=== PATIENT | male | born 1985 | race Native Hawaiian/Other Pacific Islander ===

== ENCOUNTER 2020-06-27 08:14 | Emergency (ER) | payer OTHER ==
[~2020-06-27] VITALS: Ht 182.9 cm; Wt 97.7 kg
[2020-06-27] MEDS ORDERED: NAPR220T57 PO (08:21)
[2020-06-27 09:13] LABS: COVID AG,FIA SOURCE NASOPHARYNGEAL
[2020-06-27 09:56] VITALS: BP 127/83
== END 2020-06-27 10:33 | disposition home or self-care (01) ==
LOC: EMS 08:24
DX: U07.1 COVID-19 (principal); R05 Cough
CPT/HCPCS: 87426; Z7502